=== PATIENT | female | born 2005 | race Caucasian/White ===

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

== ENCOUNTER 2025-01-03 15:42 | Emergency (ER) | payer SELFPAY ==
[2025-01-03 16:06] LABS: APPEARANCE,URINE CLOUDY; GLUCOSE,URINE NEGATIVE (NEGATIVE); OCCULT BLOOD,URINE LARGE (NEGATIVE)
[2025-01-03 16:18] LABS: SQUAMOUS EPITHELIAL CELLS,UR FEW
== END 2025-01-03 17:14 | disposition left against medical advice (07) ==
LOC: MW.ED 15:42
DX: Z53.21 Procedure and treatment not carried out due to patient leaving prior to being seen by health care provider (principal)
CPT/HCPCS: 81001; 87086